=== PATIENT | female | born 1995 | race Caucasian/White ===

== ENCOUNTER 2017-02-22 02:05 | Inpatient (IN) | payer BC ==
[~2017-02-22] VITALS: Ht 165.1 cm; Wt 81.1 kg
[2017-02-22 02:37] VITALS: Ht 165.1 cm; Wt 81.1 kg
[2017-02-22] MEDS: LACTATED RINGER'S 1,000 ML IV SCH ×5 (03:58→18:47)
--- NOTE | 2017-02-22 04:19 | RADRPT ---
PROCEDURE: ULTRASOUND BIOPHYSICAL PROFILE CLINICAL INDICATION: 22-year-old female with decreased movement for viability . TECHNIQUE: Multiple sonographic images were obtained in order to perform a biophysical profile The images were reviewed on a PACS workstation. COMPARISON: None. FINDINGS: There is a single viable intrauterine gestation. There is a vertex presentation. Cardiac activity i s present at 161 beats per minute. The placenta is anterior. The results of the biophysical profile are as follows: breathing movement = 2/2 Gross body movement = 2/2 tone = 2/2 Qualitative amniotic fluid volume = 2/2 Amniotic fluid index equals 8.7 cm. This yields a biophysical profile score of 8/8. IMPRESSION: Biophysical profile score is 8/8. .Bassam Gracia MD, Date Time Electronically viewed and signed by .Bassam Gracia MD, on 02/22/2017 04:19 .M/
--- NOTE | 2017-02-22 04:21 | RADRPT ---
PROCEDURE: ULTRASOUND OBSTETRICAL CLINICAL INDICATION: 22-year-old female with decreased movement for size and date d etermination. TECHNIQUE: Multiple sonographic images of the pelvis were obtained. The images were reviewed on a PACS workstation. COMPARISON: Ultrasound biophysical profile obtained concurrently. FINDINGS: The cervix is not well visualized. There is a single viable intrauterine gestation. Cardiac activit y is present with 168 beats per minute. There is a vertex presentation. Measurements were made in or lauren to determine age. The results are as follows: BPD = 9.34 cm, HC = 33.78 cm, AC = 35.16 cm, FL = 7.68 cm. This yields and estimated gestational ag e of approximately 38 weeks 5 days. The estimated date of delivery is March 03, 2017. The EFW = 3640 +/- 546 g (8 lb 0 oz). The GP is 75%. The placenta is anterior. There is no evidence for an abruption or placenta previa. IMPRESSION: 1. Single viable intrauterine gestation of approximately 38 weeks 5 days with vertex presentation. 2. The estimated weight is 3640 +/- 546 g (8 lb 0 oz). The GP is 75%. .Bassam Gracia MD, Date Time Electronically viewed and signed by .Bassam Gracia MD, MD on 02/22/2017 04:21 .Junior/
--- NOTE | 2017-02-22 06:32 | PN ---
Triage Information Date/Time Reason for visit: Uterine contractions Weeks of Gestation 38 weeks /Para Diabetes: none Hypertention: none Objective Heart Rate: 120's Heart Rate Comments Moderate variability and accelerations Contractions: 6-10 Minutes Apart Exam Cervix 1 cm/90% Results/Medications Medications Current Medications Lactated Ringer's (Lr) 1,000 ml @ 125 mls/hr Q8H IV Last administered on 03:58; Admin Dose 125 MLS/HR; Start 02/22/17 at 03:00; Stop 02/23/17 at 03: 00 Imaging Results Placenta anterior EFW 3640 gm BPP 02/02 JUAN 8.7 Disposition: Assessment/Plan Will monitor for labor. DASH RON MD Feb 22, 2017 06:32
[2017-02-22 07:13] LABS: BASOPHILS % 0.1 % (0.0-2.0); EOSINOPHILS # 0.1 10^3/ul (0.0-0.5); EOSINOPHILS % 1.4 % (0.0-7.0); HEMOGLOBIN 10.2 g/dl (12.0-16.0); LYMPHOCYTES # 1.8 10^3/ul (0.8-2.9); LYMPHOCYTES % 24.5 % (18.0-55.0); MEAN CORPUSCULAR HEMOGLOBIN 27.6 pg (29.0-33.0); MEAN CORPUSCULAR HGB CONC 32.9 g/dl (32.0-37.0); MONOCYTE # 0.8 10^3/ul (0.3-0.9); MONOCYTES % 10.5 % (0.0-13.0); NEUTROPHILS % 63.1 % (30.0-74.0); PLATELET COUNT 273 10^3/UL (140-415); RED BLOOD COUNT 3.69 10^6/ul (4.20-5.40); RED CELL DISTRIBUTION WIDTH 13.9 % (11.5-14.5); WHITE BLOOD COUNT 7.3 10^3/ul (4.8-10.8)
[2017-02-22 07:45] LABS: INR 0.91; PROTIME 12.2 Sec (12.2-14.2)
[2017-02-22 07:46] LABS: PARTIAL THROMBOPLASTIN TIME 25.8 Sec (25.0-35.0)
[2017-02-22] MEDS ORDERED: BUTORPHANOL 2 MG INJ IV ONE (09:30)
[2017-02-22] MEDS ORDERED: morphine 10 MG INJ IM ONE (10:00)
[2017-02-22] MEDS ORDERED: MISOPROSTOL 200 MCG TAB PR PRN (10:30)
[2017-02-22] MEDS ORDERED: LIDOCAINE 1% (MPF) 30 ML INJ INJ PRN (10:30)
[2017-02-22] MEDS ORDERED: LACTATED RINGER'S 1,000 ML IV PRN (10:30)
[2017-02-22] MEDS ORDERED: CARBOPROST 250 MCG INJ IM PRN (10:30)
[2017-02-22] MEDS ORDERED: BUTORPHANOL 2 MG INJ IV PRN ×2 (10:30)
[2017-02-22] MEDS ORDERED: OXYTOCIN 30 UNITS/LR 500 ML IV PRN (10:30)
[2017-02-22] MEDS ORDERED: METHYLERGONOVINE 0.2 MG INJ IM PRN (10:30)
[2017-02-22] MEDS ORDERED: OXYTOCIN 30 UNITS/LR 500 ML IV SCH ×4 (10:30→16:00)
[2017-02-22] MEDS ORDERED: IBUPROFEN 600 MG TAB PO PRN (16:00)
[2017-02-22 16:18] LABS: ADD UMIC YES; UR ASCORBIC ACID NEGATIVE (NEGATIVE); UR BACTERIA FEW /HPF (NONE SEEN); UR BILIRUBIN (Dip) NEGATIVE (NEGATIVE); UR BLOOD (Dip) 2+ mg/dL (NEGATIVE); UR CLARITY CLEAR (CLEAR); UR COLOR YELLOW (YELLOW); UR GLUCOSE (Dip) NEGATIVE (NEGATIVE); UR KETONES (Dip) NEGATIVE (NEGATIVE); UR LEUKOCYTE ESTERASE (Dip) 1+ Leu/ul (NEGATIVE); UR NITRITE (Dip) NEGATIVE (NEGATIVE); UR RBC 2 /HPF (0-5); UR TOTAL PROTEIN (Dip) NEGATIVE (NEGATIVE); UR UROBILINOGEN (Dip) NEGATIVE (NEGATIVE)
[2017-02-22 16:35] LABS: BARBITURATES Negative (NEGATIVE); BENZODIAZEPINES Negative (NEGATIVE); CANNABINOIDS Negative (NEGATIVE); COCAINE Negative (NEGATIVE); OPIATES Negative (NEGATIVE)
--- NOTE | 2017-02-22 17:13 | HP ---
Date/Time of Note Date/Time of Note DATE: 02/22/17 TIME: 17:12 OB - History Hx of Present Free Text/Dictation pt presents at 38.6 co of ucx no log pmh none psh none : 1 Care: Good Care Ultrasounds: Normal mid trimester US Obstetrical Complications: None Past Family/Social History * Past Medical, Surgical, Family and Obstetric Histories reviewed from chart. OB Admission Exam Physical Exam HEENT: WNL Heart: Rhythm Normal Abdomen: WNL Extremities: Normal Reflexes: Normal Cervical Dilatation: 2cm Last 72 hours Lab Results CBC & BMP 02/22/17 06:30 OB Assessment/Plan Reason for admission: active labor Plan: Expectant Management Other plan: pt with cervical change from closed to 2cm admit for labor plan JOAO UPTON MD Feb 22, 2017 17:13
[2017-02-22] MEDS ORDERED: FENTAnyl 2MCG/ML-ROPIV 0.2% 100 ML ONE (22:27)
[2017-02-22] MEDS ORDERED: MINERAL OIL LIGHT 10 ML VIAL ONE (22:39)
[2017-02-23] MEDS ORDERED: OXYTOCIN 30 UNITS/LR 500 ML IV SCH (01:00)
[2017-02-23] MEDS: LACTATED RINGER'S 1,000 ML IV SCH ×3 (02:39→13:47)
[2017-02-23] MEDS ORDERED: FENTAnyl 2MCG/ML-ROPIV 0.2% 100 ML BAG EPI SCH (05:00)
[2017-02-23] MEDS ORDERED: NALOXONE (0.4 MG/ML) INJ IV PRN (05:00)
[2017-02-23] MEDS ORDERED: ONDANSETRON 4 MG INJ ONE (08:10)
[2017-02-23] MEDS ORDERED: ONDANSETRON 4 MG INJ IV STA ×2 (08:14→11:48)
[2017-02-23] MEDS ORDERED: MINERAL OIL LIGHT 10 ML VIAL TOP ONE (10:00)
--- NOTE | 2017-02-23 10:32 | LDN ---
Date/Time of Note Date/Time of Note DATE: 02/23/17 TIME: 10:31 Delivery Summary Weeks of Gestation 39 Placenta Delivered: Spontaneously Meconium: none Anesthesia type: Epidural Estimated blood loss: 200 Sponge & Needle done & correct: Yes All needle counts correct: Yes Any foreign bodies felt in the: No Problems: JAN ALBRIGHT M.D. Feb 23, 2017 10:32
[2017-02-23 12:30] VITALS: BP 116/68; PULSE 91; RESP 20
[2017-02-23] MEDS ORDERED: LANOLIN 7 GM TUBE TOP PRN (12:30)
[2017-02-23] MEDS: IBUPROFEN 600 MG TAB PO SCH ×2 (12:30→18:08)
[2017-02-23] MEDS ORDERED: OXYTOCIN 30 UNITS/LR 500 ML IV PRN (12:30)
[2017-02-23] MEDS ORDERED: WITCH HAZEL/GLYCERIN PAD PR PRN (12:30)
[2017-02-23] MEDS ORDERED: ZOLPIDEM 5 MG TAB PO PRN (12:30)
[2017-02-23] MEDS ORDERED: METHYLERGONOVINE 0.2 MG INJ IM PRN (12:30)
[2017-02-23] MEDS ORDERED: SENNA/DOCUSATE NA (8.6MG/50MG) TAB PO PRN (12:30)
[2017-02-23] MEDS ORDERED: OXYCODONE/ASPIRIN (4.88/325) TAB PO PRN (12:30)
[2017-02-23] MEDS ORDERED: BENZOCAINE 20% 56 ML SPRAY TOP PRN (12:30)
[2017-02-23] MEDS ORDERED: CARBOPROST 250 MCG INJ IM PRN (12:30)
[2017-02-23] MEDS ORDERED: MISOPROSTOL 200 MCG TAB PR PRN (12:30)
[2017-02-23 13:30] VITALS: BP 120/83; PULSE 74; RESP 20
[2017-02-23 15:35] VITALS: BP 121/72; PULSE 89; RESP 20
[2017-02-23] MEDS: NITROFURANTOIN (SR) 100 MG CAP PO SCH (17:05)
[2017-02-23] MEDS: LACTATED RINGER'S 1,000 ML IV* SCH ×2 (17:06→20:28)
[2017-02-23 20:15] VITALS: BP 106/59; PULSE 98; RESP 18
[2017-02-23] MEDS: SENNA/DOCUSATE NA (8.6MG/50MG) TAB PO SCH (21:53)
[2017-02-24] MEDS: IBUPROFEN 600 MG TAB PO SCH ×4 (00:03→17:32)
[2017-02-24 04:15] VITALS: BP 88/55; PULSE 86; RESP 18
[2017-02-24 08:20] VITALS: BP 85/50; PULSE 80; RESP 19
[2017-02-24] MEDS: SENNA/DOCUSATE NA (8.6MG/50MG) TAB PO SCH ×2 (08:59→21:20)
[2017-02-24] MEDS: NITROFURANTOIN (SR) 100 MG CAP PO SCH ×2 (08:59→21:20)
[2017-02-24] MEDS: LACTATED RINGER'S 1,000 ML IV* SCH ×3 (12:28→21:19)
[2017-02-24 13:48] LABS: BASOPHILS % 0.1 % (0.0-2.0); EOSINOPHILS # 0.1 10^3/ul (0.0-0.5); EOSINOPHILS % 0.6 % (0.0-7.0); HEMATOCRIT 27.5 % (37.0-47.0); HEMOGLOBIN 8.9 g/dl (12.0-16.0); LYMPHOCYTES # 1.6 10^3/ul (0.8-2.9); LYMPHOCYTES % 13.5 % (18.0-55.0); MEAN CORPUSCULAR HEMOGLOBIN 27.7 pg (29.0-33.0); MEAN CORPUSCULAR HGB CONC 32.4 g/dl (32.0-37.0); MEAN CORPUSCULAR VOLUME 85.7 fl (72.0-104.0); MEAN PLATELET VOLUME 10.2 fl (7.4-10.4); MONOCYTE # 0.7 10^3/ul (0.3-0.9); MONOCYTES % 5.9 % (0.0-13.0); NEUTROPHILS % 79.5 % (30.0-74.0); PLATELET COUNT 259 10^3/UL (140-415); RED BLOOD COUNT 3.21 10^6/ul (4.20-5.40); RED CELL DISTRIBUTION WIDTH 14.2 % (11.5-14.5)
[2017-02-24 13:49] LABS: RUBELLA ANTIBODY - IGG <0.90 index
[2017-02-24 17:00] VITALS: BP 111/61; PULSE 106
[2017-02-24 20:30] VITALS: BP 92/52; PULSE 82; RESP 15
[2017-02-25] MEDS: IBUPROFEN 600 MG TAB PO SCH ×2 (00:02→05:41)
[2017-02-25] MEDS: LACTATED RINGER'S 1,000 ML IV* SCH (04:28)
[2017-02-25 05:48] VITALS: BP 95/56; PULSE 95; RESP 16
[2017-02-25 08:22] VITALS: BP 115/69; PULSE 87; RESP 18
[2017-02-25] MEDS ORDERED: DIPHTH/TET/ACEL PERTUSS (ADULT) 0.5 ML VIAL IM* ONE (09:00)
[2017-02-25] MEDS: SENNA/DOCUSATE NA (8.6MG/50MG) TAB PO SCH (09:27)
[2017-02-25] MEDS: NITROFURANTOIN (SR) 100 MG CAP PO SCH (09:27)
--- NOTE | 2017-02-25 09:50 | DS ---
Date/Time of Note Date/Time of Note DATE: 02/25/17 TIME: 09:42 Obstetrical Discharge Record Final Diagnosis Final Diagnosis: Term delivered Vaginal Delivery Obstetrical Delivery: Spontaneous, Laceration, Repaired Condition on Discharge Physical Assessment Voiding: Yes Bowel Movement: Yes Breast: Soft, non-tender Fundus: Firm Abdomen and Incision: Laboratory Tests Test 02/24/17 12:25 White Blood Count 12.010^3/ul Red Blood Count 3.2110^6/ul Hemoglobin 8.9g/dl Hematocrit 27.5% Mean Corpuscular Volume 85.7fl Mean Corpuscular Hemoglobin 27.7pg Mean Corpuscular Hemoglobin Concent 32.4g/dl Red Cell Distribution Width 14.2% Platelet Count 03911^3/UL Mean Platelet Volume 10.2fl Neutrophils % 79.5% Lymphocytes % 13.5% Monocytes % 5.9% Eosinophils % 0.6% Basophils % 0.1% Nucleated Red Blood Cells % 0.0/100WBC Neutrophils # (Manual) 9.510^3/ul Lymphocytes # 1.610^3/ul Monocytes # 0.710^3/ul Eosinophils # 0.110^3/ul Basophils # 0.010^3/ul Nucleated Red Blood Cells # 0.010^3/ul Current Medications Medications (Trade) Dose Ordered Sig/Rosenad Route PRN Reason Start Time Stop Time Status Last Admin Dose Admin Lactated Ringer's (Lr) 1,000 ml @ 125 mls/hr Q8H IV 02/22/17 03:00 02/23/17 03:00 DC 02/22/17 18:47 Butorphanol Tartrate (Stadol) 2 mg ONCE ONCE IV 02/22/17 09:30 02/22/17 09:31 DC 02/22/17 09:43 Morphine Sulfate 10 mg 10 mg ONCE ONCE IM 02/22/17 10:00 02/22/17 10:01 Cancel Lactated Ringer's (Lr) 1,000 ml @ 125 mls/hr Q8H IV 02/22/17 10:13 02/23/17 12:31 DC 02/23/17 07:29 Butorphanol Tartrate (Stadol) 1 mg Q2H PRN IV PAIN 02/22/17 10:30 02/23/17 12:31 DC Butorphanol Tartrate (Stadol) 2 mg Q2H PRN IV PAIN 02/22/17 10:30 02/23/17 12:31 DC 02/22/17 19:14 Lidocaine 30 ml 30 ml ONCE PRN INJ EPISIOTOMY/TEARING 02/22/17 10:30 02/23/17 12:31 DC Oxytocin/Lactated Ringer's 500 ml @ 125 mls/hr ONCE -MAY REPEAT X1 IV 02/22/17 10:30 02/23/17 12:31 DC 02/23/17 11:17 Oxytocin/Lactated Ringer's 500 ml @ 125 mls/hr ONCE IV 02/22/17 10:30 02/23/17 12:31 DC Lactated Ringer's 1,000 ml @ 2,000 mls/hr Q30M PRN IV PRE-EPIDURAL BOLUS 02/22/17 10:30 02/23/17 12:31 DC 02/22/17 22:15 Oxytocin/Lactated Ringer's 500 ml @ 0 mls/hr ONCE PRN IV For Hemorrhage Management 02/22/17 10:30 02/23/17 12:31 DC Methylergonovine Maleate (Methergine) 0.2 mg ONCE PRN IM VAGINAL BLEEDING 02/22/17 10:30 02/23/17 12:31 DC 02/23/17 10:30 Carboprost Tromethamine (Hemabate) 250 mcg ONCE PRN IM VAGINAL BLEEDING 02/22/17 10:30 02/23/17 12:31 DC Misoprostol 1000 mcg 1,000 mcg ONCE PRN OR VAGINAL BLEEDING 02/22/17 10:30 02/23/17 12:31 DC Oxytocin/Lactated Ringer's 500 ml @ 125 mls/hr ONCE -MAY REPEAT X1 IV 02/22/17 16:00 02/23/17 12:31 DC Oxytocin/Lactated Ringer's 500 ml @ 125 mls/hr ONCE IV 02/22/17 16:00 02/23/17 12:31 DC Ibuprofen 600 mg 600 mg ONCE PRN PO Mild Pain (Pain Score 1-3) 02/22/17 16:00 02/23/17 12:31 DC 02/23/17 11:25 Fentanyl/ Ropivacaine 100 ml @ ud STK-MED ONCE .ROUTE 02/22/17 22:27 02/22/17 22:28 DC Mineral Oil 10 ml 10 ml STK-MED ONCE .ROUTE 02/22/17 22:39 02/22/17 22:40 DC Oxytocin/Lactated Ringer's 500 ml @ 0 mls/hr Q0M IV 02/23/17 01:00 02/23/17 12:31 DC 02/23/17 00:15 Naloxone HCl (Narcan) 0.2 mg Q2M PRN IV FOR RESP RATE 8 OR LESS 02/23/17 05:00 02/23/17 12:31 DC Fentanyl/ Ropivacaine 100 ml EPIDURAL (PCEA) EPI 02/23/17 05:00 02/23/17 12:31 DC 02/23/17 05:20 Ondansetron HCl (Zofran Inj) 4 mg STK-MED ONCE .ROUTE 02/23/17 08:10 02/23/17 08:11 DC Ondansetron HCl (Zofran Inj) 4 mg ONCE STAT IV 02/23/17 08:14 02/23/17 08:16 DC 02/23/17 08:17 Mineral Oil (Muri-Lube) ONCE ONCE TOP 02/23/17 10:00 02/23/17 10:03 DC 02/23/17 10:00 Ondansetron HCl 4 mg 4 mg ONCE STAT IV 02/23/17 11:48 02/23/17 11:49 DC 02/23/17 11:55 Lactated Ringer's (Lr) 1,000 ml @ 125 mls/hr Q8H IV* 02/23/17 12:28 Ibuprofen (Motrin) 600 mg Q6 PO 02/23/17 12:30 02/25/17 05:41 Oxycodone/Aspirin (Percodan) 2 tab Q3H PRN PO PAIN LEVEL 6-10 02/23/17 12:30 Zolpidem Tartrate (Ambien) 5 mg QHS PRN PO INSOMNIA 02/23/17 12:30 Senna/Docusate Sodium (Senokot-S) 1 tab BID PO 02/23/17 21:00 02/25/17 09:27 Senna/Docusate Sodium (Senokot-S) 1 tab BID PRN PO CONSTIPATION 02/23/17 12:30 Witch Amber/ Glycerin (Tucks Pads) 1 pad BEDSIDE MEDICATION PRN OR HEMORRHOID/EPISIOTMY PAIN 02/23/17 12:30 02/23/17 13:46 Benzocaine (Dermoplast [place]) 1 spray BEDSIDE MEDICATION PRN TOP HEMORRHOID/EPISIOTMY PAIN 02/23/17 12:30 02/23/17 13:46 Lanolin (Rtk-B-Joeabb) 1 applic BEDSIDE MEDICATION PRN TOP BEDSIDE FOR CAROL TO NIPPLES 02/23/17 12:30 02/23/17 13:45 Diphtheria/ Tetanus/Acell Pertussis 0.5 ml 0.5 ml ONCE ONCE IM* 02/25/17 09:00 02/25/17 09:01 DC Oxytocin/Lactated Ringer's 500 ml @ 0 mls/hr ONCE PRN IV For Hemorrhage Management 02/23/17 12:30 Methylergonovine Maleate (Methergine) 0.2 mg ONCE PRN IM VAGINAL BLEEDING 02/23/17 12:30 Carboprost Tromethamine (Hemabate) 250 mcg ONCE PRN IM VAGINAL BLEEDING 02/23/17 12:30 Misoprostol (Cytotec) 1,000 mcg ONCE PRN OR VAGINAL BLEEDING 02/23/17 12:30 Nitrofurantoin Macrocrystals (Macrobid) 100 mg BID PO 02/23/17 15:00 02/25/17 09:27 Episiotomy: . . Calf Tenderness: No Patient Condition: Good MARCELLA PALENCIA MD Feb 25, 2017 09:50
== END 2017-02-25 12:35 | disposition home or self-care (01) | DRG 775 ==
LOC: L-D 02:05 → OBT 02:05 → L-D 10:46 → PP1 02-23 12:22
PROVIDERS: ADMIT Obstetrics & Gynecology; ATTEND Obstetrics & Gynecology
PROC: 3E033VJ Introduction of Other Hormone into Peripheral Vein, Percutaneous Approach (ICD-10-PCS; 2017-02-22)
PROC: 10E0XZZ Delivery of Products of Conception, External Approach (ICD-10-PCS; principal; 2017-02-23)
DX: O80 Encounter for full-term uncomplicated delivery (principal); Z37.0 Single live birth; Z3A.39 39 weeks gestation of pregnancy
CPT/HCPCS: 62319; 76815; 76818; 80307; 81001; 85025; 85610; 85730; 86592; 86703; 86762; 86885; 86900; 86901; 87086; 87340; 87591; 90715; 96360; 96361; 99464; G0463; J0595; J2210; J2405; J2590; J3010; J7120

== ENCOUNTER 2017-09-23 20:11 | Emergency (ER) | END 2017-09-24 02:54 | disposition left against medical advice (07) ==

== ENCOUNTER 2018-10-29 02:14 | Emergency (ER) | payer BC ==
[~2018-10-29] VITALS: Ht 165.1 cm; Wt 72.8 kg
[~2018-10-29 02:14] MED LIST: CEPH-443 PO
[2018-10-29 02:28] VITALS: BP 120/72; PULSE 100; RESP 20; Ht 165.1 cm; Wt 72.8 kg
[2018-10-29] MEDS ORDERED: NAPR-985 PO (06:58)
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
== END 2018-10-29 07:22 | disposition home or self-care (01) ==
LOC: FTE 02:14
DX: M54.2 Cervicalgia (principal)
CPT/HCPCS: 99282

== ENCOUNTER 2018-11-07 08:31 | Emergency (ER) | payer BC ==
[~2018-11-07] VITALS: Ht 165.1 cm; Wt 71.8 kg
[~2018-11-07 08:31] MED LIST changes: +NAPR-985 PO
[2018-11-07 08:34] VITALS: BP 123/66; PULSE 100; RESP 18; Ht 165.1 cm; Wt 71.8 kg
[2018-11-07] MEDS ORDERED: IBUPROFEN 800 MG TAB PO ONE (10:00)
[2018-11-07] MEDS ORDERED: HYDR-4011 PO (11:52)
[2018-11-07] MEDS ORDERED: NAPR-985 PO (11:52)
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
== END 2018-11-07 12:13 | disposition home or self-care (01) ==
LOC: FTE 08:31
DX: M54.2 Cervicalgia (principal)
CPT/HCPCS: 70360; 99283; Z7610

== ENCOUNTER 2019-01-26 18:49 | Emergency (ER) | payer BC ==
[~2019-01-26] VITALS: Ht 162.6 cm; Wt 73.7 kg
[~2019-01-26 18:49] MED LIST changes: +HYDR-4011 PO; +IBUP-1542 PO; +NITR-58 PO; +ONDA4TAB14 PO
[2019-01-26 19:02] VITALS: Ht 162.6 cm; Wt 73.7 kg
[2019-01-26] MEDS ORDERED: SOD CHLORIDE 0.9% 1,000 ML IV STA (19:30)
[2019-01-26] MEDS ORDERED: morphine 2 MG INJ IV STA (19:30)
[2019-01-26] MEDS ORDERED: ACETAMINOPHEN 325 MG TAB PO ONE (19:30)
[2019-01-26] MEDS ORDERED: ONDANSETRON 4 MG INJ IV STA (19:30)
--- NOTE | 2019-01-26 20:03 | ERD ---
ER Documentation Chief Complaint Chief Complaint pt c/o abdominal pain, n/v with SINGH x 3 days HPI This is a 24-year-old female who presents with 2 to 3 days of abdominal pain, fever, nausea vomiting and diarrhea as well as headache. No dysuria hematuria or frequency. Denies possibility of . ROS All systems reviewed and are negative except as per history of present illness. Medications Home Meds Active Scripts Ondansetron (Ondansetron Odt) 4 Mg Tab.rapdis, 4 MG PO Q6H PRN for NAUSEA AND/OR VOMITING, #20 TAB Prov:ANAT RODRIGUEZ PA-C 01/26/19 Ibuprofen* (Motrin*) 600 Mg Tab, 600 MG PO Q6, #30 TAB Prov:ANAT RODRIGUEZ PA-C 01/26/19 Naproxen* (Naprosyn*) 500 Mg Tablet, 500 MG PO BID PRN for PAIN AND/OR INFLAMMATION, #30 TAB Prov:TJ VALDEZ PA-C 11/07/18 Hydrocodone/Acetaminophen ([place] 5-325 Tablet) 1 Each Tablet, 1 TAB PO Q6H PRN for PAIN, #7 TAB Prov:TJ VALDEZ PA-C 11/07/18 Naproxen* (Naprosyn*) 500 Mg Tablet, 500 MG PO BID PRN for PAIN AND/OR INFLA MMATION, #30 TAB Prov:LARRY MEZA PA-C 10/29/18 Cephalexin* (Keflex*) 500 Mg Capsule, 500 MG PO BID for 5 Days, CAP Prov:ZUNILDA CERVANTES MD 11/11/17 Allergies Allergies: Coded Allergies: No Known Allergy (Unverified , 11/11/17) PMhx/Soc History of Surgery: No Anesthesia Reaction: No Hx Neurological Disorder: Yes (Headaches) Hx Respiratory Disorders: No Hx Cardiac Disorders: No Hx Psychiatric Problems: No Hx Miscellaneous Medical Probl: Yes (scoliosis) Hx Alcohol Use: No Hx Substance Use: No Hx Tobacco Use: No Smoking Status: Never smoker FmHx Family History: No diabetes Physical Exam Vitals Vital Signs Date Temp Pulse Resp B/P (MAP) Pulse Ox O2 O2 Flow FiO2 Time Delivery Rate 01/26/19 38.0 19:51 01/26/19 100.3 119 16 125/58 95 19:02 (80) Physical Exam INITIAL VITAL SIGNS: Reviewed by me GENERAL: Awake, alert and oriented x 4, well appearing, nontoxic, speaking in full sentences. No acute distress HEAD: Atraumatic NECK: Supple. No masses. Full range of motion. No meningismus. No midline tenderness. RESPIRATORY: Clear to auscultation bilaterally. Symmetric chest wall rise. No wheezing or rales. No accessory muscle use. CV: Regular rate and rhythm. No murmurs, rubs, or gallops. ABDOMEN: Soft, non-distended. Diffuse abdominal tenderness Result Diagram: 01/26/19 1744 01/26/191943 Results 24 hrs Laboratory Tests Test 01/26/19 17:44 01/26/19 19:43 01/26/19 19:44 White Blood Count 10.7 10^3/ul Red Blood Count 4.20 10^6/ul Hemoglobin 12.2 g/dl Hematocrit 37.4 % Mean Corpuscular Volume 89.0 fl Mean Corpuscular Hemoglobin 29.0 pg Mean Corpuscular 32.6 g/dl Hemoglobin Concent Red Cell Distribution Width 11.9 % Platelet Count 303 10^3/UL Mean Platelet Volume 9.2 fl Immature Granulocytes % 0.300 % Neutrophils % 77.8 % Lymphocytes % 14.1 % Monocytes % 6.2 % Eosinophils % 1.5 % Basophils % 0.1 % Nucleated Red Blood Cells % 0.0 /100WBC Immature Granulocytes # 0.030 10^3/ul Neutrophils # 8.3 10^3/ul Lymphocytes # 1.5 10^3/ul Monocytes # 0.7 10^3/ul Eosinophils # 0.2 10^3/ul Basophils # 0.0 10^3/ul Nucleated Red Blood Cells # 0.0 10^3/ul POC Beta HCG, Qualitative NEGATIVE Urine Color YELLOW Urine Clarity CLEAR Urine pH 8.0 Urine Specific [place] 1.024 Urine Ketones NEGATIVE mg/dL Urine Nitrite NEGATIVE mg/dL Urine Bilirubin NEGATIVE mg/dL Urine Urobilinogen 1+ mg/dL Urine Leukocyte Esterase NEGATIVE [place]/ul Urine Microscopic RBC 10 /HPF Urine Microscopic WBC 1 /HPF Urine Squamous Epithelial Cells FEW /HPF Urine Hemoglobin 1+ mg/dL Urine Glucose NEGATIVE mg/dL Urine Total Protein NEGATIVE mg/dl Sodium Level 140 mmol/L Potassium Level 4.0 mmol/L Chloride Level 105 mmol/L Carbon Dioxide Level 28 mmol/L Anion Gap 7 Blood Urea Nitrogen 12 mg/dl Creatinine 0.62 mg/dl Est Glomerular Filtrat > 60 mL/min Rate mL/min Glucose Level 102 mg/dl Calcium Level 8.7 mg/dl Total Bilirubin 0.4 mg/dl Direct Bilirubin 0.00 mg/dl Indirect Bilirubin 0.4 mg/dl Aspartate Amino Transf (AST/SGOT) 22 IU/L Alanine 29 IU/L Aminotransferase (ALT/SGPT) Alkaline Phosphatase 117 IU/L Total Protein 7.9 g/dl Albumin 4.2 g/dl Globulin 3.70 g/dl Albumin/Globulin Ratio 1.13 Lipase 29 U/L Current Medications Medications Dose Sig/Rosenda Start Time Status Last (Trade) Ordered Route PRN Stop Time Admin Dose Reason Admin Sodium 1,000 ml @ Q1H STAT 01/26/19 DC 01/26/19 Chloride 1,000 mls/hr IV 19:30 01/26/19 19:51 20:29 Morphine 2 mg ONCE STAT 01/26/19 DC 01/26/19 Sulfate IV 19:30 01/26/19 19:51 (morphine) 19:32 Ondansetron 4 mg ONCE STAT 01/26/19 DC 01/26/19 HCl (Zofran IV 19:30 01/26/19 19:51 Inj) 19:32 650 mg ONCE ONCE 01/26/19 DC 01/26/19 Acetaminophen PO 19:30 01/26/19 19:51 (Tylenol 19:32 Tab) Procedures/MDM The differential diagnosis includes but is not limited to appendicitis, cholelithiasis, cholecystitis, pancreatitis, hepatitis, gastritis, peptic ulcer disease, bowel obstruction, diverticulitis, renal disease including stones, torsion, AAA, pyelonephritis, and others. Abdominal labs and CT ordered. Laboratory analysis shows no evidence of acute emergent abnormality. No evidence of significant leukocytosis suggesting systemic infection or severe anemia. No evidence of acute renal or liver failure, no evidence of severe alkalosis or acidosis. CT scan is negative. Unknown etiology for symptoms, could be viral illness. Prescription for Zofran and Motrin given. She should hydrate herself and take Tylenol Motrin for her fever. Patient counseled regarding my diagnostic impression and care plan. Prior to discharge all questions answered. Pt agrees with treatment plan and understands strict return precautions. Pt is instructed to follow up with primary care provider within 24-48 hours. Precautionary instructions provided including instructions to return to the ER if not improving or for any worsening or changing symptoms or concerns. Departure Diagnosis: Primary Impression: Abdominal pain Condition: Stable ANAT RODRIGUEZ PA-C Jan 26, 2019 20:03
[2019-01-26 21:09] VITALS: BP 117/61; PULSE 96; RESP 16
== END 2019-01-26 21:10 | disposition home or self-care (01) ==
LOC: FTE 18:49
DX: R10.84 Generalized abdominal pain (principal); R11.2 Nausea with vomiting, unspecified; R10.2 Pelvic and perineal pain
CPT/HCPCS: 36415; 74176; 80053; 81001; 81025; 83690; 85025; 96374; 96375; 99285; J2270; J2405; J7030; Z7610

== ENCOUNTER 2019-02-02 12:46 | Emergency (ER) | payer BC ==
[~2019-02-02] VITALS: Ht 165.1 cm; Wt 72.8 kg
[2019-02-02 12:59] VITALS: Ht 165.1 cm; Wt 72.8 kg
[2019-02-02] MEDS ORDERED: ONDANSETRON 4 MG INJ IV STA (13:12)
[2019-02-02] MEDS ORDERED: SOD CHLORIDE 0.9% 1,000 ML IV STA (13:12)
[2019-02-02] MEDS ORDERED: KETOROLAC 30 MG INJ IV STA (13:12)
[2019-02-02] MEDS ORDERED: ACETAMINOPHEN 325 MG TAB PO ONE (16:00)
[2019-02-02 16:19] VITALS: BP 102/67; PULSE 74; RESP 20
--- NOTE | 2019-02-02 16:54 | ERD ---
ER Documentation Chief Complaint Chief Complaint interm AP since end December; no NVD, no dysuria. worse p eating. HPI Patient is a 24-year-old female with no medical problems who presents with upper abdominal pain. The patient has left upper quadrant abdominal pain which started on January 22. It comes and goes. She tried ibuprofen and Tylenol. She was seen in the ER for similar 7 days ago. She reports subjective fevers. She denies urinary symptoms. Upon review of old medical records this is the patient's eighth visit to the ER since 2016. She does not remember the name of her primary doctor. ROS All systems reviewed and are negative except as per history of present illness. Medications Home Meds Active Scripts Ondansetron (Ondansetron Odt) 4 Mg Tab.rapdis, 4 MG PO Q6H PRN for NAUSEA AND/OR VOMITING, #10 TAB Prov:JAX STONE MD 02/02/19 Ibuprofen* (Motrin*) 600 Mg Tab, 600 MG PO Q6H PRN for PAIN AND OR ELEVATED TEMP, #30 TAB Prov:JAX STONE MD 02/02/19 Nitrofurantoin Monohyd Macrocr* (Macrobid*) 100 Mg Capsr, 100 MG PO BID for 7 Days, CAP Prov:JAX STONE MD 02/02/19 Discontinued Scripts Ondansetron (Ondansetron Odt) 4 Mg Tab.rapdis, 4 MG PO Q6H PRN for NAUSEA AND/OR VOMITING, #20 TAB Prov:ANAT RODRIGUEZ PA-C 01/26/19 Ibuprofen* (Motrin*) 600 Mg Tab, 600 MG PO Q6, #30 TAB Prov:ANAT RODRIGUEZ PA-C 01/26/19 Naproxen* (Naprosyn*) 500 Mg Tablet, 500 MG PO BID PRN for PAIN AND/OR INFLAMMATION, #30 TAB Prov:TJ VALDEZ PA-C 11/07/18 Hydrocodone/Acetaminophen ([place] 5-325 Tablet) 1 Each Tablet, 1 TAB PO Q6H PRN f or PAIN, #7 TAB Prov:TJ VALDEZ PA-C 11/07/18 Naproxen* (Naprosyn*) 500 Mg Tablet, 500 MG PO BID PRN for PAIN AND/OR INFLAMMATION, #30 TAB Prov:LARRY MEZA PA-C 10/29/18 Cephalexin* (Keflex*) 500 Mg Capsule, 500 MG PO BID for 5 Days, CAP Prov:ZUNILDA CERVANTES MD 11/11/17 Allergies Allergies: Coded Allergies: No Known Allergy (Unverified , 02/02/19) PMhx/Soc Medical and Surgical Hx: pt denies Medical Hx, pt denies Surgical Hx History of Surgery: No Anesthesia Reaction: No Hx Neurological Disorder: Yes (Headaches) Hx Respiratory Disorders: No Hx Cardiac Disorders: No Hx Psychiatric Problems: No Hx Miscellaneous Medical Probl: Yes (scoliosis) Hx Alcohol Use: No Hx Substance Use: No Hx Tobacco Use: No Smoking Status: Never smoker FmHx Family History: diabetes Physical Exam Vitals Vital Signs Date Temp Pulse Resp B/P (MAP) Pulse Ox O2 O2 Flow FiO2 Time Delivery Rate 02/02/19 98.1 74 20 102/67 100 Room Air 16:19 (79) 02/02/19 84 24 91/56 (68) 99 Room Air 15:31 02/02/19 100.5 109 20 119/62 98 12:59 (81) Physical Exam Const: No acute distress Head: Atraumatic Eyes: Normal Conjunctiva ENT: Normal External Ears, Nose and Mouth. Neck: Full range of motion. No meningismus. Resp: Clear to auscultation bilaterally Cardio: Regular rate and rhythm, no murmurs Abd: Soft, epigastric tenderness palpation without rebound or guarding Skin: No petechiae or rashes Back: No midline or flank tenderness Ext: No cyanosis, or edema Neur: Awake and alert Psych: Normal Mood and Affect Result Diagram: 02/02/19 1324 02/02/19 1324 Results 24 hrs Laboratory Tests Test 02/02/19 13:24 02/02/19 13:25 02/02/19 13:29 02/02/19 15:19 White Blood Count 10.0 10^3/ul Red Blood Count 3.78 10^6/ul Hemoglobin 10.9 g/dl Hematocrit 33.6 % Mean Corpuscular 88.9 fl Volume Mean Corpuscular 28.8 pg Hemoglobin Mean Corpuscular 32.4 g/dl Hemoglobin Concent Red Cell 11.6 % Distribution Width Platelet Count 397 10^3/UL Mean Platelet 8.7 fl Volume Immature 0.300 % Granulocytes % Neutrophils % 77.1 % Lymphocytes % 14.0 % Monocytes % 5.6 % Eosinophils % 2.8 % Basophils % 0.2 % Nucleated Red Blood 0.0 /100WBC Cells % Immature 0.030 10^3/ul Granulocytes # Neutrophils # 7.7 10^3/ul Lymphocytes # 1.4 10^3/ul Monocytes # 0.6 10^3/ul Eosinophils # 0.3 10^3/ul Basophils # 0.0 10^3/ul Nucleated Red Blood 0.0 10^3/ul Cells # Sodium Level 140 mmol/L Potassium Level 3.7 mmol/L Chloride Level 104 mmol/L Carbon Dioxide 27 mmol/L Level Anion Gap 9 Blood Urea Nitrogen 13 mg/dl Creatinine 0.62 mg/dl Est Glomerular > 60 mL/min Filtrat Rate mL/min Glucose Level 101 mg/dl Calcium Level 9.0 mg/dl Total Bilirubin 0.4 mg/dl Direct Bilirubin 0.00 mg/dl Indirect Bilirubin 0.4 mg/dl Aspartate Amino 23 IU/L Transf (AST/SGOT) Alanine 41 IU/L Aminotransferase (A LT/SGPT) Alkaline 105 IU/L Phosphatase Total Protein 8.1 g/dl Albumin 3.7 g/dl Globulin 4.40 g/dl Albumin/Globulin 0.84 Ratio Lipase 24 U/L Urine Color YELLOW Urine Clarity SLIGHTLY CLOUDY Urine pH 7.0 Urine Specific 1.016 [place] Urine Ketones NEGATIVE mg/dL Urine Nitrite NEGATIVE mg/dL Urine Bilirubin NEGATIVE mg/dL Urine Urobilinogen NEGATIVE mg/dL Urine Leukocyte 2+ [place]/ul Esterase Urine Microscopic 1 /HPF RBC Urine Microscopic 9 /HPF WBC Urine Squamous FEW /HPF Epithelial Cells Urine Bacteria FEW /HPF Urine Mucus FEW /HPF Urine Hemoglobin 1+ mg/dL Urine Glucose NEGATIVE mg/dL Urine Total Protein NEGATIVE mg/dl POC Venous Lactate 1.6 mmol/L Lactic Acid Level 0.6 mmol/L Current Medications Medications Dose Sig/Rosenda Start Time Status Last (Trade) Ordered Route PRN Stop Time Admin Dose Reason Admin Sodium 1,000 ml @ Q1H STAT 02/02/19 DC 02/02/19 Chloride 1,000 mls/hr IV 13:12 02/02/19 13:27 14:11 Ondansetron 4 mg ONCE STAT 02/02/19 DC 02/02/19 HCl (Zofran IV 13:12 02/02/19 13:51 Inj) 13:13 Ketorolac 30 mg ONCE STAT 02/02/19 DC 02/02/19 Tromethamine IV 13:12 02/02/19 13:50 (Toradol) 13:13 650 mg ONCE ONCE 02/02/19 DC 02/02/19 Acetaminophen PO 16:00 02/02/19 15:42 (Tylenol 16:01 Tab) Procedures/MDM Ultrasound the gallbladder read by radiology. Patient is a 24-year-old female who presents with abdominal pain. Ultrasound the gallbladder was negative for cholecystitis. LFTs and lipase were normal. Urine shows mild cystitis and the patient will be treated with Macrobid for 1 week course. I doubt appendicitis, cholecystitis, pancreatitis, or bowel obstruction. I believe outpatient management is appropriate but the patient will need close follow-up with her primary doctor within 24 to 48 hours. Departure Diagnosis: Primary Impression: Cystitis Additional Impression: Abdominal pain Abdominal location: epigastric Qualified Codes: R10.13 - Epigastric pain Condition: Fair Patient Instructions: Abdominal Pain, Cystitis Referrals: Your doctor Additional Instructions: Call your primary care doctor TOMORROW for an appointment during the next 1-2 days.See the doctor sooner or return here if your condition worsens before your appointment time. JAX STONE MD Feb 02, 2019 16:54
== END 2019-02-02 16:22 | disposition home or self-care (01) ==
LOC: E/R 12:46
DX: N30.90 Cystitis, unspecified without hematuria (principal)
CPT/HCPCS: 36415; 76705; 80053; 81001; 83605; 83690; 85025; 86305; 87040; 96374; 96375; 99285; J1885; J2405; J7030; Z7610

== ENCOUNTER 2019-02-28 18:51 | Emergency (ER) | payer SELFPAY ==
[~2019-02-28] VITALS: Ht 162.6 cm; Wt 72.1 kg
[~2019-02-28 18:51] MED LIST changes: -CEPH-443 PO; -HYDR-4011 PO; -NAPR-985 PO
[2019-02-28 19:07] VITALS: BP 101/65; PULSE 79; RESP 18; Ht 162.6 cm; Wt 72.1 kg
== END 2019-02-28 23:16 | disposition left against medical advice (07) ==
LOC: FTE 18:51
DX: Z53.21 Procedure and treatment not carried out due to patient leaving prior to being seen by health care provider (principal)